=== PATIENT | female | born 1955 | race Caucasian/White ===

== ENCOUNTER 2017-08-03 09:10 | Outpatient (CLI) | payer OTHER | END 2017-08-03 09:11 | disposition home or self-care (01) | LOC: LAB.R 09:10 | PROVIDERS: ATTEND Podiatrist | DX: L03.032 Cellulitis of left toe (principal) | CPT/HCPCS: 87070; 87205 ==

== ENCOUNTER 2017-08-03 18:59 | Emergency (ER) | payer OTHER ==
[2017-08-03 19:08] VITALS: BP 142/65
--- NOTE | 2017-08-03 21:11 | XRAY Report ---
EXAM: LEFT TOE RADIOGRAPHY EXAM DATE: 08/03/2017 08:53 PM. CLINICAL HISTORY: Infected first digit, hx of diabetes. COMPARISON: None. TECHNIQUE: 3 views. FINDINGS: Bones: No periosteal reaction or osseous destruction. No fracture or bone lesion. Joints: Normal. No subluxations. Soft Tissues: Mild soft tissue swelling. IMPRESSION: No acute osseous abnormality. [facility] Referring Provider Line: [phone] SITE ID: [id number]
--- NOTE | 2017-08-03 21:11 | XRAY Preliminary Report ---
Exam: XR TOE(S) LT IMPRESSION: No acute osseous abnormality. [facility] SITE ID: [id number]
--- NOTE | 2017-08-03 21:35 | ED Physician Documentation ---
PD HPI LOWER EXT INJURY - Stated complaint Stated Complaint: L FOOT PAIN - Chief complaint Chief Complaint: Trauma Ext - History obtained from History obtained from: Patient - History of Present Illness PD HPI LOW EXT INJURY LOCATION: Left, Toe Type of injury: Blunt / blow Where injury occurred: Home Timing - onset: How many days ago (3) Timing - details: Abrupt onset, Still present Similar symptoms before: Has not had sx before Recently seen: Clinic - Additional information Additional information: Patient is a 61 year old female who is presenting to the emergency department for toe pain. Patient states that she stubbed her toe last week and had a small wound. Patient has been taking care of her 's wound that turned out to be mrsa. patient developed a secondary infection. patient saw her pmd today who started the patient on mupirocin and doxycycline. Patient reports that she had worsening pain in her toe tonight. Before evaluation the blister on her toe opened and patient had purulent discharge from the site. Upon initial evaluation patient stated that she was feeling better. Review of Systems Constitutional: denies: Fever, Chills Eyes: reports: Reviewed and negative Ears: reports: Reviewed and negative Nose: reports: Reviewed and negative Throat: reports: Reviewed and negative Cardiac: reports: Reviewed and negative Respiratory: reports: Reviewed and negative GI: denies: Nausea, Vomiting : denies: Dysuria, Frequency Skin: reports: Rash, Lesions Musculoskeletal: reports: Extremity pain, Joint pain Neurologic: denies: Generalized weakness PD PAST MEDICAL HISTORY - Past Medical History Cardiovascular: Hypertension, High cholesterol Endocrine/Autoimmune: Type 2 diabetes, HyPOthyroidism - Past Surgical History 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 - Present Medications Home Medications: Ambulatory Orders Medication Instructions Recorded Confirmed Atorvastatin [Lipitor] 20 mg PO DAILY 02/03/16 08/03/17 Levothyroxine Sodium [Levoxyl] 75 mcg PO DAILY 02/03/16 08/03/17 Lisinopril 10 mg PO DAILY 02/03/16 08/03/17 metFORMIN [Glucophage] 500 mg PO BID 02/03/16 08/03/17 Doxycycline Hyclate [Vibramycin] 100 mg PO BID 08/03/17 08/03/17 - Allergies Allergies/Adverse Reactions: Allergies Allergy/AdvReac Type Severity Reaction Status Date / Time clarithromycin Allergy Hives Verified 08/03/17 19:08 codeine Allergy Rash Verified 08/03/17 19:08 Iodinated Contrast- Oral and Allergy Hives Verified 08/03/17 19:08 IV Dye [Iodinated Contrast Media - IV Dye] morphine Allergy Edema Verified 08/03/17 19:08 - Social History Does the pt smoke?: No Smoking Status: Never smoker Does the pt drink ETOH?: No Does the pt have substance abuse?: No - Immunizations Immunizations are current?: Yes PD ED PE NORMAL - Vitals Vital signs reviewed: Yes - General General: Alert and oriented X 3, No acute distress - HEENT HEENT: Atraumatic, PERRL - Neck Neck: Supple, no meningeal sign - Cardiac Cardiac: RRR - Respiratory Respiratory: No respiratory distress - Abdomen Abdomen: Soft - Neuro Neuro: Alert and oriented X 3, No motor deficit, Normal speech Eye Opening: Spontaneous Motor: Obeys Commands Verbal: Oriented GCS Score: 15 - Psych Psych: Normal mood PD ED PE EXPANDED - Extremities Extremities: Left toe(s) (erythema and purulent discharge of left first digit, mild streaking erythema of left foot) Results - Vitals Vitals: Vital Signs - 24 hr 08/03/17 19:07 Temperature 36.9 C Heart Rate 81 Respiratory 16 Rate Blood Pressure 142/65 H O2 Saturation 97 Oxygen O2 Source Room air - Rads (name of study) foot x-ray Radiology: Final report received (normal) PD MEDICAL DECISION MAKING - ED course Complexity details: reviewed old records, reviewed results, re-evaluated patient , considered differential, d/w patient ED course: Patient was seen and examined at bedside. Patient was already on appropriate antibiotics and the blister had opened on its own. Patient's wound had purulent discharge and her pain was improved without medication. Imaging was ordered due to the patient's history of diabetes. When patient returned the results were reviewed and within normal limits. Patient required no further work up and was stable for discharge with outpatient follow up. Departure - Departure Disposition: 01 Home, Self Care Clinical Impression: Cellulitis Condition: Good Instructions: ED Infec Skin Cellulitis Follow-Up: Federico Mark MD [Primary Care Provider] - Comments: Your symptoms today are being caused by cellulitis. You have been prescribed medications and you should continue with them. your x-ray was normal but you need to monitor for signs of improvement because the infection can spread to your bone. You should follow up with your doctor this week for a wound check. You may return to the emergency department at any time for new, worsening or uncontrollable symptoms. Discharge Date/Time: 08/03/17 21:41
== END 2017-08-03 21:41 | disposition home or self-care (01) ==
LOC: ED 18:59
DX: L03.032 Cellulitis of left toe (principal); I10 Essential (primary) hypertension; E11.9 Type 2 diabetes mellitus without complications; Z79.84 Long term (current) use of oral hypoglycemic drugs
CPT/HCPCS: 73660; 87070; 87205; 99282; 99283

== ENCOUNTER 2017-08-06 17:20 | Emergency (ER) | payer OTHER ==
[2017-08-06 17:31] VITALS: BP 136/52
[2017-08-06] MEDS ORDERED: BUPIVACAINE 0.5% PF 30 ML VIAL SUBQ STA (19:34)
--- NOTE | 2017-08-06 19:37 | ED Physician Documentation ---
History of Present Illness - Stated complaint Stated Complaint: TOE PX - Chief complaint Chief Complaint: Ext Problem - History obtained from History obtained from: Patient - History of Present Illness Timing: How many weeks ago (3) Pain level max: 4 Pain level now: 3 Improved by: nothing Worsened by: Walking - Additonal information Additional information: Patient is a 61-year-old female who is several weeks status post a partial toenail removal, she has been getting recurrent infections in the toe since that time. She is currently on doxycycline and Bactrim. States that the toe has become more swollen over the past few days. She saw her PCP who recommended she come here for IV antibiotics. She has no fevers. No vomiting. It is the left great toe. She states she has had problems with this toe for years. Also states she has more problems with the toenail for years. 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 - Present Medications Home Medications: Ambulatory Orders Medication Instructions Recorded Confirmed Atorvastatin [Lipitor] 20 mg PO DAILY 02/03/16 08/03/17 Levothyroxine Sodium [Levoxyl] 75 mcg PO DAILY 02/03/16 08/03/17 Lisinopril 10 mg PO DAILY 02/03/16 08/03/17 metFORMIN [Glucophage] 500 mg PO BID 02/03/16 08/03/17 Doxycycline Hyclate [Vibramycin] 100 mg PO BID 08/03/17 08/03/17 Ibuprofen [Motrin] 800 mg PO Q8H PRN #30 tablet 08/06/17 - Allergies Allergies/Adverse Reactions: Allergies Allergy/AdvReac Type Severity Reaction Status Date / Time clarithromycin Allergy Hives Verified 08/03/17 19:08 codeine Allergy Rash Verified 08/03/17 19:08 Iodinated Contrast- Oral and Allergy Hives Verified 08/03/17 19:08 IV Dye [Iodinated Contrast Media - IV Dye] morphine Allergy Edema Verified 08/03/17 19:08 - Social History Does the pt smoke?: No Smoking Status: Never smoker Does the pt drink ETOH?: No Does the pt have substance abuse?: No - Immunizations Immunizations are current?: Yes PD ED PE NORMAL - Vitals Vital signs reviewed: Yes - General General: Alert and oriented X 3, No acute distress - Derm Derm: Warm and dry - Extremities Extremities: Other (Left great toe there is erythema, swelling and purulence around the great toe. Mostly on the medial aspect where the removal is done. Still has approximately 80% of the toenail. The what appears to be loosening on its own from the infection. Neurovascularly intact) - Neuro Neuro: Alert and oriented X 3 - Psych Psych: Normal mood, Normal affect Results - Vitals Vitals: Vital Signs - 24 hr 08/06/17 17:29 Temperature 36.8 C Heart Rate 85 Respiratory 17 Rate Blood Pressure 136/52 H O2 Saturation 97 Oxygen O2 Source Room air Procedures - General procedure General procedure: Left great toenail removal - After consent was obtained from the patient explaining the risks and benefits. 0.5% Marcaine was used as a digital block to anesthetize the toe With excellent anesthesia achieved. Curved forceps were then utilized to elevate and remove the toenail. Purulent material was removed from the toe itself, mild debridement performed, Xeroform dressing was applied. Tube gauze was applied over this. Neurovascularly intact. No complications PD MEDICAL DECISION MAKING - ED course Complexity details: reviewed old records, re-evaluated patient, considered differential, d/w patient ED course: Patient is a 61-year-old female with what appears to be an ongoing infection from her left great toenail. Appears to have a significant paronychia as well as no breakdown of the skin at the proximal aspect of the nail on the medial side. We discussed several treatment options, she has decided that she would like the toenail removed at this time as she has had problems with the toenail for years, states ever since it fell off and never grew back correctly. I think this is prudent in her case. The toenail was removed and she tolerated this well. Also given a dose of Rocephin. We will continue her current antibiotics and follow-up closely with her geospatial systems integrator. She is well-appearing, nontoxic. No evidence of gangrene or necrosis. Patient counseled regarding signs and symptoms for which I believe and urgent re-evaluation would be necessary. Patient with good understanding of and agreement to plan and is comfortable going home at this time This document was made in part using voice recognition software. While efforts are made to proofread this document, sound alike and grammatical errors may occur. Departure - Departure Disposition: 01 Home, Self Care Clinical Impression: Cellulitis Qualifiers: Site of cellulitis: unspecified site Qualified Code(s): L03.90 - Cellulitis, unspecified Condition: Good Instructions: ED Infec Skin Cellulitis Follow-Up: Ludmila March DPM [Provider Admit Priv/Credential] - Prescriptions: Ibuprofen [Motrin] 800 mg PO Q8H PRN #30 tablet PRN Reason: PAIN &/OR FEVER Comments: Conitnue your medications at home. Return if you worsen. Discharge Date/Time: 08/06/17 21:57
[2017-08-06] MEDS ORDERED: LIDOCAINE 1% 2 ML VIAL SUBQ ONE (21:06)
[2017-08-06] MEDS ORDERED: cefTRIAXone 1 GM VIAL IM STA (21:06)
[2017-08-06] MEDS ORDERED: IBUPROFEN 800 MG TABLET PO STA (21:13)
== END 2017-08-06 21:57 | disposition home or self-care (01) ==
LOC: ED 17:20
DX: L03.032 Cellulitis of left toe (principal); E11.9 Type 2 diabetes mellitus without complications; E78.00 Pure hypercholesterolemia, unspecified; I10 Essential (primary) hypertension; E03.9 Hypothyroidism, unspecified; Z79.84 Long term (current) use of oral hypoglycemic drugs
CPT/HCPCS: 11730; 96372; 99283; A9270

== ENCOUNTER 2017-12-21 13:41 | Outpatient (CLI) | payer OTHER ==
[2017-12-21] MEDS ORDERED: IOPAMIDOL-300 100 ML VIAL ONE (14:10)
[2017-12-21] MEDS ORDERED: IOPAMIDOL-300 50 ML VIAL ONE (14:10)
[2017-12-21] MEDS ORDERED: IOPAMIDOL-300 50 ML VIAL PO ONE (15:41)
[2017-12-21] MEDS ORDERED: IOPAMIDOL-300 100 ML VIAL IVP ONE (15:41)
--- NOTE | 2017-12-21 16:13 | CT Report ---
Procedure Date: 12/21/2017 Accession Number: [id number] / [id number] Procedure: CT - Abdomen/Pelvis W/ CPT Code: FULL RESULT: EXAM: Abdomen/Pelvis W/ DATE: 12/21/2017 3:35 PM CLINICAL HISTORY: diarrhea and abd pain COMPARISON: CT 08/31/2010. TECHNIQUE: Routine helical CT imaging was performed through the abdomen and pelvis. IV contrast: 100 mL of Isovue 300. Enteric contrast: Yes. Reconstructions: Coronal and sagittal. In accordance with CT protocol optimization, one or more of the following dose reduction techniques were utilized for this exam: automated exposure control, adjustment of mA and/or KV based on patient size, or use of iterative reconstructive technique. FINDINGS: There is focal fat stranding and bowel wall thickening focally in the left lower quadrant surrounding a segment of sigmoid colon with diverticuli. There is a small amount of associated free pelvic fluid. There is no associated collection or extraintestinal gas to suggest macro perforation or drainable abscess. The liver, gallbladder, spleen, kidneys, adrenal glands and pancreas are unremarkable. There is no pathologic lymphadenopathy or bowel obstruction. IMPRESSION: Uncomplicated sigmoid diverticulitis. [facility]
== END 2017-12-21 13:42 | disposition home or self-care (01) ==
LOC: DI 13:41
PROVIDERS: ATTEND Nurse Practitioner Family
DX: K57.32 Diverticulitis of large intestine without perforation or abscess without bleeding (principal); K57.30 Diverticulosis of large intestine without perforation or abscess without bleeding
CPT/HCPCS: 74177; Q9967

== ENCOUNTER 2018-03-17 09:35 | Outpatient (CLI) | payer OTHER ==
--- NOTE | 2018-03-18 11:33 | Mammography Report ---
Reason: SCREENING MAMMO Procedure Date: 03/17/2018 Accession Number: [id number] / [id number] Procedure: MGS - Screening Mammo Dig Bilat CPT Code: FULL RESULT: EXAM: Screening Mammo Dig Bilat DATE: 03/17/2018 9:55 AM CLINICAL HISTORY: Routine screening TECHNIQUE: Bilateral CC and MLO views were obtained. COMPARISON: 02/12/2015, 05/18/2013, 03/15/2012 and 06/18/2010 FINDINGS: There are scattered fibroglandular densities. There is no significant interval change. No suspicious masses, clustered microcalcifications, or regions of architectural distortion are identified. IMPRESSION: Negative examination RECOMMENDATION: Routine annual screening unless otherwise clinically indicated. BIRADS CATEGORY 1: Negative STANDARD QUALIFYING STATEMENTS: 1. This examination was reviewed with the aid of Computer-Aided Detection (CAD). 2. A negative or benign imaging report should not delay biopsy if clinically suspicious findings are present. Consider surgical consultation if warrented. More than 5% of cancers are not identified by imaging. 3. Dense breasts may obscure an underlying neoplasm.
== END 2018-03-17 09:36 | disposition home or self-care (01) ==
LOC: DI.S 09:35
DX: Z12.31 Encounter for screening mammogram for malignant neoplasm of breast (principal)
CPT/HCPCS: 77067

== ENCOUNTER 2018-04-19 10:04 | Outpatient (CLI) | payer OTHER | END 2018-04-19 10:05 | disposition home or self-care (01) | LOC: SC 10:04 | PROVIDERS: ATTEND Internal Medicine Pulmonary Disease | DX: G47.33 Obstructive sleep apnea (adult) (pediatric) (principal) | CPT/HCPCS: 99203; 99212 ==

== ENCOUNTER 2018-08-02 12:58 | Outpatient (CLI) | payer OTHER | END 2018-08-02 12:59 | disposition home or self-care (01) | LOC: SC 12:58 | PROVIDERS: ATTEND Internal Medicine Pulmonary Disease | DX: G47.33 Obstructive sleep apnea (adult) (pediatric) (principal) | CPT/HCPCS: 99212; 99213 ==

== ENCOUNTER 2018-09-16 17:43 | Emergency (ER) | payer OTHER ==
--- NOTE | 2018-09-16 18:59 | ED Physician Documentation ---
PD HPI SKIN - Stated complaint Stated Complaint: LT TOE DISCHARGE - Chief complaint Chief Complaint: Ext Problem - History obtained from History obtained from: Patient - History of Present Illness Timing - onset: How many days ago (2-3) Timing - duration: Days Timing - details: Gradual onset Location: LLE (noted some swelling, redness and small pustule at corner of nailbed 2-3 days ago, increasing size. Not draining.) Quality / character: Painful, Discolored (red), Swelling Similar symptoms before: Diagnosis (had paronychia in the past and then fungal infection. 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 - Present Medications Home Medications: Ambulatory Orders Medication Instructions Recorded Confirmed Levothyroxine Sodium [Levoxyl] 75 mcg PO DAILY 02/03/16 08/03/17 RX: Atorvastatin [Lipitor] 20 mg PO DAILY 02/03/16 08/03/17 RX: Lisinopril 10 mg PO DAILY 02/03/16 08/03/17 RX: metFORMIN [Glucophage] 500 mg PO BID 02/03/16 08/03/17 Ibuprofen [Motrin] 800 mg PO Q8H PRN #30 tablet 08/06/17 Montelukast [Singulair] 10 mg PO QPM 09/16/18 09/16/18 RX: Doxycycline Hyclate 100 mg PO BID #14 capsule 09/16/18 RX: Mupirocin 1 applic TP TID #15 g 09/16/18 - Allergies Allergies/Adverse Reactions: Allergies Allergy/AdvReac Type Severity Reaction Status Date / Time clarithromycin Allergy Hives Verified 09/16/18 17:58 codeine Allergy Rash Verified 09/16/18 17:58 Iodinated Contrast- Oral and Allergy Hives Verified 09/16/18 17:58 IV Dye [Iodinated Contrast Media - IV Dye] morphine Allergy Edema Verified 09/16/18 17:58 - Social History Does the pt smoke?: No Smoking Status: Never smoker Does the pt drink ETOH?: No Does the pt have substance abuse?: No - Immunizations Immunizations are current?: Yes PD ED PE NORMAL - Vitals Vital signs reviewed: Yes - General General: Alert and oriented X 3, No acute distress, Well developed/nourished - Derm Derm: Normal color, Warm and dry - Extremities Extremities: Other (Left great toe nailbed is without nail. The nail bed corner has an area of redness and swelling and a small white pustule that is not draining. I used a #11 scalpel tip to neck added to and got a couple of drops of pus out. There is no redness extending proximal to the toe.) Results - Vitals Vitals: Vital Signs - 24 hr 09/16/18 09/16/18 17:55 19:34 Temperature 36.8 C Heart Rate 77 74 Respiratory 16 14 Rate Blood Pressure 132/69 H 136/68 H O2 Saturation 99 98 Oxygen O2 Source Room air Departure - Departure Disposition: 01 Home, Self Care Clinical Impression: Paronychia Condition: Stable Record reviewed to determine appropriate education?: Yes Instructions: ED Paronychia Ch Follow-Up: Federico Mark MD [Primary Care Provider] - Prescriptions: RX: Doxycycline Hyclate 100 mg PO BID #14 capsule RX: Mupirocin 1 applic TP TID #15 g Comments: Soak the toe 2-3 times a day to help promote drainage and improve blood flow to the area. Use mupirocin antibiotic ointment topically to the area after that. Keep it gently covered with a Band-Aid or simple dressing. Take doxycycline oral antibiotic for the next several days to week until the toe looks well- healed. Recheck if not improved over the next several days or so. Discharge Date/Time: 09/16/18 19:34
[2018-09-16] MEDS ORDERED: MUPIROCIN 2% OINT 1 GM TOP STA (19:16)
[2018-09-16] MEDS ORDERED: DOXYCYCLINE 100 MG TABLET PO STA (19:16)
[2018-09-16 19:35] VITALS: BP 136/68
== END 2018-09-16 19:34 | disposition home or self-care (01) ==
LOC: ED 17:43
DX: L03.032 Cellulitis of left toe (principal); E11.9 Type 2 diabetes mellitus without complications; Z79.84 Long term (current) use of oral hypoglycemic drugs; I10 Essential (primary) hypertension
CPT/HCPCS: 10060; 99283; A9270

== ENCOUNTER 2019-04-06 08:00 | Outpatient (CLI) | payer OTHER ==
--- NOTE | 2019-04-06 08:43 | Mammography Report ---
Reason: ROUTINE MAMMO Procedure Date: 04/06/2019 Accession Number: [id number] / [id number] Procedure: MGS - Screening Mammo Dig Bilat CPT Code: Final Report FULL RESULT: EXAM: Screening Mammo Dig Bilat DATE: 04/06/2019 8:22 AM CLINICAL HISTORY: Screening encounter. Family history of breast cancer in a paternal aunt at the age of 30. TECHNIQUE: (B) - Bilateral CC and MLO views were obtained. COMPARISON: 03/17/2018 through 03/18/2007. PARENCHYMAL PATTERN: (A) - The breast(s) demonstrate(s) scattered fibroglandular densities. FINDINGS: There are no suspicious masses, calcifications, or areas of distortion. IMPRESSION: Negative examination. BI-RADS category 1. RECOMMENDATION: (ANNUAL) - Recommend routine annual screening mammography. BI-RADS CATEGORY: (1) - Negative. STANDARD QUALIFYING STATEMENTS: 1. This examination was reviewed with the aid of Computer-Aided Detection (CAD). 2. A negative or benign imaging report should not preclude biopsy if clinically suspicious findings are present. 3. Dense breasts may obscure an underlying neoplasm. 4. This examination was reviewed without the aid of 3D breast imaging (tomosynthesis).
== END 2019-04-06 08:01 | disposition home or self-care (01) ==
LOC: DI.S 08:00
PROVIDERS: ATTEND Nurse Practitioner Family
DX: Z12.31 Encounter for screening mammogram for malignant neoplasm of breast (principal); Z80.3 Family history of malignant neoplasm of breast
CPT/HCPCS: 77067

== ENCOUNTER 2020-05-06 10:55 | Emergency (ER) | payer OTHER ==
[2020-05-06 11:54] LABS: BILIRUBIN,URINE NEGATIVE (NEGATIVE); GLUCOSE, URINE (UA) NEGATIVE (NEGATIVE); KETONES,URINE (UA) NEGATIVE (NEGATIVE); LEUKOCYTE ESTERASE, URINE SMALL (NEGATIVE); NITRITE,URINE NEGATIVE (NEGATIVE); OCCULT BLOOD,URINE NEGATIVE (NEGATIVE); PH,URINE 6.5 PH (5.0-7.5); PROTEIN,URINE NEGATIVE (NEGATIVE); UROBILINOGEN,URINE 0.2 (NORMAL) E.U./dL (NORMAL)
[2020-05-06 11:57] LABS: CLARITY,URINE CLEAR (CLEAR)
[2020-05-06 12:11] LABS: BACTERIA,URINE Moderate /HPF (None Seen); EPITHELIAL CELLS,UR FEW Transitional /HPF (<= Few); RBC,URINE 0-5 /HPF (0-5); SQUAMOUS EPITHELIAL CELL,UR MOD Squamous (<= Few)
[2020-05-06 12:27] LABS: BASOPHILS % (AUTO) 0.2 %; EOSINOPHILS # (AUTO) 0.1 10^3/uL (0.0-0.7); EOSINOPHILS % (AUTO) 2.6 %; HGB - HEMOGLOBIN 12.6 g/dL (12.0-16.0); LYMPHOCYTES # (AUTO) 2.4 10^3/uL (1.5-3.5); LYMPHOCYTES % (AUTO) 48.8 %; MEAN CORPUSCULAR HEMOGLOBIN 29.9 pg (27.0-31.0); MEAN CORPUSCULAR HGB CONC 32.6 g/dL (32.0-36.0); MEAN CORPUSCULAR VOLUME 91.5 fL (81.0-99.0); MEAN PLATELET VOLUME 10.1 fL (7.9-10.8); MONOCYTES # (AUTO) 0.4 10^3/uL (0.0-1.0); MONOCYTES % (AUTO) 7.4 %; NEUTROPHILS % (AUTO) 40.8 %; PLT - PLATELET COUNT 230 10^3/uL (130-450); RED BLOOD COUNT 4.22 10^6/uL (4.20-5.40); RED CELL DISTRIBUTION WIDTH 13.1 % (12.0-15.0)
[2020-05-06 12:43] LABS: ALBUMIN 4.1 g/dL (3.2-5.5); ALBUMIN/GLOBULIN RATIO 1.5 (1.0-2.2); BILIRUBIN,TOTAL 0.8 mg/dL (0.2-1.0); CALCIUM 9.4 mg/dL (8.5-10.3); CREATININE 0.9 mg/dL (0.4-1.0); TOTAL PROTEIN 6.9 g/dL (6.7-8.2)
--- NOTE | 2020-05-06 12:50 | ED Physician Documentation ---
PD HPI ABD PAIN - Stated complaint Stated Complaint: ABD PX - Chief complaint Chief Complaint: Abd Pain - History obtained from History obtained from: Patient - History of Present Illness Timing - onset: Today, How many days ago (3) Timing - duration: Days (3) Timing - details: Gradual onset, Waxing and waning Pain level max: 7 Pain level now: 3 Quality: Aching, Pain Location: Periumbilical, RLQ Radiation: No: Chest, , Lower back, Left flank, Left shoulder, Right flank, Right shoulder, Upper back Improved by: Laying still Worsened by: Moving, Palpation Associated symptoms: No: Fever, Nausea, Vomiting, Hematemesis, Diarrhea, Constipation, Melena, Hematochezia, Dysuria, Hematuria Review of Systems Constitutional: denies: Fever, Chills Nose: denies: Rhinorrhea / runny nose, Congestion Throat: denies: Sore throat Cardiac: denies: Chest pain / pressure GI: denies: Vomiting, Diarrhea Skin: denies: Rash Musculoskeletal: denies: Neck pain, Back pain Neurologic: denies: Headache PD PAST MEDICAL HISTORY - Past Medical History Cardiovascular: Hypertension, High cholesterol Endocrine/Autoimmune: Type 2 diabetes, HyPOthyroidism - Past Surgical History 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 - Present Medications Home Medications: Ambulatory Orders Medication Instructions Recorded Confirmed Atorvastatin [Lipitor] 20 mg PO DAILY 02/03/16 05/06/20 Levothyroxine Sodium [Levoxyl] 75 mcg PO DAILY 02/03/16 05/06/20 lisinopriL [Lisinopril] 10 mg PO DAILY 02/03/16 05/06/20 metFORMIN [Glucophage] 500 mg PO BID 02/03/16 05/06/20 Montelukast [Singulair] 10 mg PO QPM 09/16/18 05/06/20 Amox/Clav 875/125 [Augmentin] 1 tab PO Q8H #30 tablet 05/06/20 - Allergies Allergies/Adverse Reactions: Allergies Allergy/AdvReac Type Severity Reaction Status Date / Time clarithromycin Allergy Hives Verified 05/06/20 11:14 codeine Allergy Rash Verified 05/06/20 11:14 Iodinated Contrast Media Allergy Hives Verified 05/06/20 11:14 [Iodinated Contrast Media - IV Dye] morphine Allergy Edema Verified 05/06/20 11:14 - Social History Does the pt smoke?: No Smoking Status: Never smoker Does the pt drink ETOH?: No Does the pt have substance abuse?: No - Immunizations Immunizations are current?: Yes PD ED PE NORMAL - Vitals Vital signs reviewed: Yes - General General: Alert and oriented X 3, No acute distress - HEENT HEENT: Moist mucous membranes - Neck Neck: Supple, no meningeal sign - Cardiac Cardiac: RRR - Respiratory Respiratory: No respiratory distress, Clear bilaterally - Abdomen Abdomen: Soft, Non distended, Other (mild TTP R pelvic area and RLQ, no peritoneal signs) - Derm Derm: Warm and dry - Extremities Extremities: No edema - Neuro Neuro: Alert and oriented X 3 - Psych Psych: Normal mood, Normal affect Results - Vitals Vitals: Vital Signs - 24 hr 05/06/20 05/06/20 05/06/20 11:12 13:14 14:54 Temperature 37.0 C 36.7 C Heart Rate 71 64 68 Respiratory 16 19 16 Rate Blood Pressure 119/59 L 126/78 133/69 H O2 Saturation 98 99 100 Oxygen O2 Source Room air - Labs Labs: Laboratory Tests 05/06/20 05/06/20 05/06/20 11:30 12:24 12:24 WBC 5.0 RBC 4.22 Hgb 12.6 Hct 38.6 MCV 91.5 MCH 29.9 MCHC 32.6 RDW 13.1 Plt Count 230 MPV 10.1 Neut # (Auto) 2.0 Lymph # (Auto) 2.4 [place] # (Auto) 0.4 Eos # (Auto) 0.1 Baso # (Auto) 0.0 Absolute Nucleated RBC 0.00 Nucleated RBC % 0.0 Sodium 141 Potassium 4.1 Chloride 106 Carbon Dioxide 26 Anion Gap 9.0 BUN 18 Creatinine 0.9 Estimated GFR (MDRD) 63 L Glucose 151 H Calcium 9.4 Total Bilirubin 0.8 AST 19 ALT 33 Alkaline Phosphatase 76 Total Protein 6.9 Albumin 4.1 Globulin 2.8 Albumin/Globulin Ratio 1.5 Lipase 34 Urine Color YELLOW Urine Clarity CLEAR Urine pH 6.5 Ur Specific Sapello <=1.005 Urine Protein NEGATIVE Urine Glucose (UA) NEGATIVE Urine Ketones NEGATIVE Urine Occult Blood NEGATIVE Urine Nitrite NEGATIVE Urine Bilirubin NEGATIVE Urine Urobilinogen 0.2 (NORMAL) Ur Leukocyte Esterase SMALL H Urine RBC 0-5 Urine WBC 6-10 H Ur Epithelial Cells FEW Transitional Ur Squamous Epith Cells MOD Squamous H Urine Bacteria Moderate H Ur Microscopic Review INDICATED Urine Culture Comments NOT INDICATED - Rads (name of study) CT abdomen pelvis Radiology: Prelim report reviewed, EMP read contemporaneously, See rad report PD MEDICAL DECISION MAKING - ED course Complexity details: reviewed results, re-evaluated patient, considered differential, d/w patient ED course: 1. Suggestion of mild infectious or inflammatory colitis involving right colon. No bowel obstruction. No free fluid of free air. 2. Colonic diverticulosis without evidence of acute diverticulitis. Normal appendix. 3. Hepatic steatosis, no discrete hepatic lesion. Patient's allergy to contrast media is hives, premedicated with Benadryl and steroids. No reaction here. CT scan shows a mild infectious or inflammatory c olitis in the right colon. Discussed with the patient and she would like antibiotics. Does understand the risks including antibiotic associated diarrhea, C. difficile etc. Patient is well-appearing, nontoxic. Afebrile. Patient counseled regarding signs and symptoms for which I believe and urgent re-evaluation would be necessary. Patient with good understanding of and agreement to plan and is comfortable going home at this time This document was made in part using voice recognition software. While efforts are made to proofread this document, sound alike and grammatical errors may occur. Departure - Departure Disposition: 01 Home, Self Care Clinical Impression: Colitis Condition: Good Instructions: ED Diverticulitis Follow-Up: Federico Mark MD [Primary Care Provider] - Within 1 week Prescriptions: Amox/Clav 875/125 [Augmentin] 1 tab PO Q8H #30 tablet Comments: Take all antibiotics until gone. Return if you worsen. Follow-up with your doctor for further care. As we discussed, colitis could be infectious or purely inflammatory, we discussed risks and benefits of antibiotics. We will prescribe the antibiotics for you today. Discharge Date/Time: 05/06/20 14:55
[2020-05-06] MEDS ORDERED: IOVERSOL 320 100 ML VIAL IVP ONE ×2 (13:20→14:26)
[2020-05-06] MEDS ORDERED: methylPREDNISolone SUCCINATE 125 MG/2 ML VIAL IVP STA (13:39)
[2020-05-06] MEDS ORDERED: diphenhydrAMINE INJ 50 MG/ML VIAL IVP STA (13:39)
--- NOTE | 2020-05-06 14:36 | CT Report ---
PROCEDURE: Abdomen/Pelvis W INDICATIONS: RLQ abd pain CONTRAST: IV CONTRAST: Optiray 320 ml: 100 PO CONTRAST: *NO PO CONTRAST TECHNIQUE: After the administration of IV contrast, 5 mm thick sections acquired from the diaphragms to the symp hysis. 5 mm thick coronal and sagittal reformats were acquired. For radiation dose reduction, the f ollowing was used: automated exposure control, adjustment of mA and/or kV according to patient size. COMPARISON: 12/21/2017. FINDINGS: Image quality: Excellent. ABDOMEN: Lung bases: Mild bibasilar dependent atelectasis is seen. Heart size is normal. Solid organs: Liver and spleen are normal in size. Hepatic steatosis is noted. No discrete hepatic l esion. Gallbladder is within normal limits. Biliary system is non dilated. Pancreas enhances normal ly. No adrenal nodules. Kidneys demonstrate normal size and enhancement. There is no renal stone or hydronephrosis. Peritoneum and bowel: There is no bowel obstruction. No gross gastric or small bowel wall thickening. Questionable right-sided colonic wall thickening and edema is seen. Transverse colon and descending colon wall thickness is normal. Sigmoid diverticulosis is seen, no CT evidence of acute diverticuliti s. No free fluid of free air. Appendix is visualized in right lower quadrant abdomen and is normal in size and appearance. Nodes and vessels: No retroperitoneal or mesenteric adenopathy by size criteria. Aorta and inferior vena cava are normal in size. Miscellaneous: No ventral hernias. PELVIS: Genitourinary: Bladder wall thickness is normal. Miscellaneous: No inguinal hernias or adenopathy. No gross abnormality is seen in uterus and bilate ral adnexa. Bones: No suspicious bony lesions. No vertebral body compression fractures. IMPRESSION: 1. Suggestion of mild infectious or inflammatory colitis involving right colon. No bowel obstruction. No free fluid of free air. 2. Colonic diverticulosis without evidence of acute diverticulitis. Normal appendix. 3. Hepatic steatosis, no discrete hepatic lesion. Reviewed by: Jey Renae MD on 05/06/2020 1:35 PM [place] Approved by: Jey Renae MD on 05/06/2020 1:35 PM [facility] Station ID: [id number]
[2020-05-06] MEDS ORDERED: AMOX/CLAV 875 MG/125 MG TABLET PO STA (14:45)
[2020-05-06 14:55] VITALS: BP 133/69
== END 2020-05-06 14:55 | disposition home or self-care (01) ==
LOC: ED 10:55
DX: K52.9 Noninfective gastroenteritis and colitis, unspecified (principal); Z91.041 Radiographic dye allergy status; I10 Essential (primary) hypertension; E11.9 Type 2 diabetes mellitus without complications; Z79.84 Long term (current) use of oral hypoglycemic drugs
CPT/HCPCS: 36415; 74177; 80053; 81001; 83690; 85025; 96374; 99284; A9270; J1200; Q9967; 81003; 87086

== ENCOUNTER 2020-09-16 08:00 | Outpatient (CLI) | payer OTHER | END 2020-09-16 23:59 | disposition home or self-care (01) | LOC: LAB.S 08:00 | PROVIDERS: ATTEND Physician Assistant Medical | DX: N39.0 Urinary tract infection, site not specified (principal) | CPT/HCPCS: 87077; 87086; 87181 ==

== ENCOUNTER 2021-08-09 10:42 | Emergency (ER) | payer OTHER ==
[2021-08-09] MEDS ORDERED: methylPREDNISolone SUCCINATE 125 MG/2 ML VIAL IVP STA (11:32)
[2021-08-09] MEDS ORDERED: diphenhydrAMINE INJ 50 MG/ML VIAL IVP STA (11:32)
[2021-08-09 11:33] LABS: BASOPHILS % (AUTO) 0.2 %; EOSINOPHILS # (AUTO) 0.1 10^3/uL (0.0-0.7); EOSINOPHILS % (AUTO) 1.4 %; HCT - HEMATOCRIT 38.9 % (37.0-47.0); HGB - HEMOGLOBIN 12.8 g/dL (12.0-16.0); LYMPHOCYTES # (AUTO) 2.5 10^3/uL (1.5-3.5); LYMPHOCYTES % (AUTO) 28.8 %; MEAN CORPUSCULAR HEMOGLOBIN 29.6 pg (27.0-31.0); MEAN CORPUSCULAR HGB CONC 32.9 g/dL (32.0-36.0); MEAN PLATELET VOLUME 10.3 fL (7.9-10.8); MONOCYTES # (AUTO) 0.7 10^3/uL (0.0-1.0); NEUTROPHILS # (AUTO) 5.4 10^3/uL (1.5-6.6); NEUTROPHILS % (AUTO) 61.5 %; PLT - PLATELET COUNT 269 10^3/uL (130-450); RED BLOOD COUNT 4.32 10^6/uL (4.20-5.40); RED CELL DISTRIBUTION WIDTH 12.7 % (12.0-15.0); WHITE BLOOD COUNT 8.8 x10^3/uL (4.8-10.8)
[2021-08-09 11:38] LABS: BILIRUBIN,URINE NEGATIVE (NEGATIVE); CLARITY,URINE CLEAR (CLEAR); GLUCOSE, URINE (UA) NEGATIVE (NEGATIVE); KETONES,URINE (UA) NEGATIVE (NEGATIVE); LEUKOCYTE ESTERASE, URINE NEGATIVE (NEGATIVE); NITRITE,URINE NEGATIVE (NEGATIVE); OCCULT BLOOD,URINE NEGATIVE (NEGATIVE); PROTEIN,URINE NEGATIVE (NEGATIVE); UROBILINOGEN,URINE 0.2 (NORMAL) E.U./dL (NORMAL)
[2021-08-09 11:46] LABS: ALBUMIN 4.2 g/dL (3.2-5.5); ALBUMIN/GLOBULIN RATIO 1.3 (1.0-2.2); BILIRUBIN,TOTAL 0.7 mg/dL (0.2-1.0); CALCIUM 9.4 mg/dL (8.5-10.3); CREATININE 0.8 mg/dL (0.4-1.0); TOTAL PROTEIN 7.4 g/dL (6.7-8.2)
[2021-08-09] MEDS ORDERED: IOVERSOL 320 100 ML VIAL IVP ONE ×2 (11:46→12:21)
--- NOTE | 2021-08-09 12:08 | ED Physician Documentation ---
PD HPI ABD PAIN - Stated complaint Stated Complaint: ABD PAIN - Chief complaint Chief Complaint: Abd Pain - History obtained from History obtained from: Patient - History of Present Illness Timing - onset: How many weeks ago (1) Timing - duration: Weeks (1) Timing - details: Gradual onset, Still present Quality: Sharp, Pain Location: Suprapubic Radiation: Lower back Improved by: Laying still, BM, Position, Meds Worsened by: Moving, Position, Palpation Associated symptoms: Diarrhea. No: Nausea, Vomiting Similar symptoms before: Diagnosis (diverticulitis) Recently seen: Not recently seen - Additional information Additional information: 65-year-old female with a history of diverticulitis has developed symptoms again similar to what she is had previously with diverticulitis. Over the past week she has developed some sharp stabbing pain that is in the suprapubic area. She has some sensation that when stool passes by this area prior to a bowel movement she has a bit of pain associated with this. She has had a tiny bit of blood and mucus. She has had the similar symptoms previously with diverticulitis. Review of Systems Constitutional: denies: Fever, Chills, Myalgias Respiratory: denies: Cough GI: reports: Abdominal Pain, Diarrhea. 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 - Present Medications Home Medications: Ambulatory Orders Medication Instructions Recorded Confirmed Atorvastatin [Lipitor] 20 mg PO DAILY 02/03/16 05/06/20 Levothyroxine Sodium [Levoxyl] 75 mcg PO DAILY 02/03/16 05/06/20 lisinopriL [Lisinopril] 10 mg PO DAILY 02/03/16 05/06/20 metFORMIN [Glucophage] 500 mg PO BID 02/03/16 05/06/20 Montelukast [Singulair] 10 mg PO QPM 09/16/18 05/06/20 Amox/Clav 875/125 [Augmentin] 1 tab PO Q8H #30 tablet 05/06/20 Amox/Clav 875/125 [Augmentin] 1 each PO Q12H #14 tablet 08/09/21 - Allergies Allergies/Adverse Reactions: Allergies Allergy/AdvReac Type Severity Reaction Status Date / Time clarithromycin Allergy Hives Verified 08/09/21 10:50 codeine Allergy Rash Verified 08/09/21 10:50 Iodinated Contrast Media Allergy Hives Verified 08/09/21 10:50 [Iodinated Contrast Media - IV Dye] morphine Allergy Edema Verified 08/09/21 10:50 - Social History Does the pt smoke?: No Smoking Status: Never smoker Does the pt drink ETOH?: No Does the pt have substance abuse?: No - Immunizations Immunizations are current?: Yes PD ED PE NORMAL - Vitals Vital signs reviewed: Yes (Hypertensive) - General General: Alert and oriented X 3, No acute distress, Well developed/nourished - HEENT HEENT: Atraumatic, PERRL, EOMI - Neck Neck: Supple, no meningeal sign, No bony TTP - Cardiac Cardiac: RRR, No murmur - Respiratory Respiratory: No respiratory distress, Clear bilaterally - Abdomen Abdomen: Normal bowel sounds, Soft, Non distended, No organomegaly, Other (Suprapubic tenderness to deep palpation with minimal guarding) - Back Back: No CVA TTP, No spinal TTP - Derm Derm: Normal color, Warm and dry, No rash - Extremities Extremities: No deformity, No edema - Neuro Neuro: Alert and oriented X 3, 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 2-12 intact, No motor deficit, No sensory d eficit, Normal speech Eye Opening: Spontaneous Motor: Obeys Commands Verbal: Oriented GCS Score: 15 - Psych Psych: Normal mood, Normal affect Results - Vitals Vitals: Vital Signs - 24 hr 08/09/21 08/09/21 10:46 12:50 Temperature 36.5 C Heart Rate 81 72 Respiratory 18 23 Rate Blood Pressure 140/78 H 143/75 H O2 Saturation 98 94 Oxygen O2 Source Room air - Labs Labs: Laboratory Tests 08/09/21 08/09/21 08/09/21 11:17 11:25 11:25 WBC 8.8 RBC 4.32 Hgb 12.8 Hct 38.9 MCV 90.0 MCH 29.6 MCHC 32.9 RDW 12.7 Plt Count 269 MPV 10.3 Neut # (Auto) 5.4 Lymph # (Auto) 2.5 [place] # (Auto) 0.7 Eos # (Auto) 0.1 Baso # (Auto) 0.0 Absolute Nucleated RBC 0.00 Nucleated RBC % 0.0 Sodium 138 Potassium 4.0 Chloride 102 Carbon Dioxide 25 Anion Gap 11.0 BUN 18 Creatinine 0.8 Estimated GFR (MDRD) 72 L Glucose 214 H Calcium 9.4 Total Bilirubin 0.7 AST 18 ALT 30 Alkaline Phosphatase 97 Total Protein 7.4 Albumin 4.2 Globulin 3.2 Albumin/Globulin Ratio 1.3 Lipase 42 Urine Color YELLOW Urine Clarity CLEAR Urine pH 7.0 Ur Specific Downs <=1.005 Urine Protein NEGATIVE Urine Glucose (UA) NEGATIVE Urine Ketones NEGATIVE Urine Occult Blood NEGATIVE Urine Nitrite NEGATIVE Urine Bilirubin NEGATIVE Urine Urobilinogen 0.2 (NORMAL) Ur Leukocyte Esterase NEGATIVE Ur Microscopic Review NOT INDICATED Urine Culture Comments NOT INDICATED - Rads (name of study) CT ab pel Radiology: Prelim report reviewed (Impression: 1. Mild distal sigmoid colon diverticulitis. No abscess. Cholelithiasis.), EMP read indepedently, See rad report PD MEDICAL DECISION MAKING - ED course Complexity details: reviewed results, re-evaluated patient, considered differential, d/w patient ED course: 65-year-old female with a history of diverticulitis appears to have a recurrent bout of diverticulitis. This appears uncomplicated and in the lower sigmoid colon. She is not requesting pain medication she is administered Augmentin by prescription. Departure - Departure Disposition: 01 Home, Self Care Clinical Impression: Diverticulitis Condition: Stable Instructions: ED Diverticulitis Follow-Up: Federico Mark MD [Primary Care Provider] - Prescriptions: Amox/Clav 875/125 [Augmentin] 1 each PO Q12H #14 tablet Comments: Filipe, today it looks like you have uncomplicated diverticulitis. The antibiotics should be effective is a has previously in improving her symptoms over the next 1 to 3 days. I have E scribed Augmentin to the [facility] in [place]. Discharge Date/Time: 08/09/21 13:22
--- NOTE | 2021-08-09 12:41 | CT Report ---
PROCEDURE: Abdomen/Pelvis W INDICATIONS: suprapubic pain h/o diverticulitis CONTRAST: IV CONTRAST: Optiray 320 ml: 100 PO CONTRAST: Optiray 320 ml50 TECHNIQUE: After the administration of intravenous contrast, 5 mm thick sections acquired from the diaphragms to the symphysis. 5 mm thick coronal and sagittal reformats were acquired. For radiation dose reducti on, the following was used: automated exposure control, adjustment of mA and/or kV according to emerson ent size. COMPARISON: CT abdomen and pelvis 05/06/2020. FINDINGS: Image quality: Excellent. ABDOMEN: Lung bases: Lung bases are clear. Heart size is normal. Probable small hiatal hernia. Solid organs: Liver and spleen are normal in size and enhancement. No focal lesion. Gallbladder is n ot distended. Small calcified gallstone. Biliary system is non dilated. Pancreas enhances normally. No adrenal nodules. Kidneys demonstrate normal size and enhancement, without hydronephrosis. Prob able small right renal cyst. Peritoneum and bowel: Diverticulosis. Inflammatory change about the lower sigmoid colon, (). Trac e free fluid. No abscess. No small bowel obstruction. Normal appendix. No free fluid or air. Nodes and vessels: No retroperitoneal or mesenteric adenopathy by size criteria. Aorta and inferior vena cava are normal in size. Mild to moderate calcified plaque. Miscellaneous: No ventral hernias. Small fat-containing umbilical hernia. PELVIS: Genitourinary: Bladder wall thickness is normal. Retroverted uterus. Miscellaneous: No inguinal hernias or adenopathy. Bones: No suspicious bony lesions. No vertebral body compression fractures. Mild sclerosis at the p ubic symphysis. IMPRESSION: 1. Mild distal sigmoid colon diverticulitis. No abscess. 2. Cholelithiasis. Reviewed by: Florencio Salmeron MD on 08/09/2021 11:40 AM [facility] Approved by: Florencio Salmeron MD on 08/09/2021 11:40 AM [facility] Station ID: [id number]
[2021-08-09 13:03] VITALS: BP 143/75
== END 2021-08-09 13:22 | disposition home or self-care (01) ==
LOC: ED 10:42
DX: K57.32 Diverticulitis of large intestine without perforation or abscess without bleeding (principal); E11.9 Type 2 diabetes mellitus without complications; Z79.84 Long term (current) use of oral hypoglycemic drugs
CPT/HCPCS: 36415; 74177; 80053; 81003; 83690; 85025; 96374; 99282; 99284; Q9967; 81001; 87086

== ENCOUNTER 2021-08-18 10:46 | Outpatient (CLI) | payer OTHER ==
[2021-08-18 15:24] LABS: ALBUMIN/GLOBULIN RATIO 1.2 (1.0-2.2); ALKALINE PHOSPHATASE 86 IU/L (42-121); ALT ALANINE AMINOTRANSFERASE 59 IU/L (10-60); AST ASPARTATE AMINOTRANSFERASE 24 IU/L (10-42); BILIRUBIN,TOTAL 0.7 mg/dL (0.2-1.0); BUN - BLOOD UREA NITROGEN 20 mg/dL (6-20); CALCIUM 9.6 mg/dL (8.5-10.3); CARBON DIOXIDE - CO2 26 mmol/L (21-32); CHLORIDE 99 mmol/L (101-111); CHOLESTEROL 185 mg/dL; CREATININE 0.7 mg/dL (0.4-1.0); GFR - MDRD 84 (>89); GLUCOSE 306 mg/dL (70-100); HDL CHOLESTEROL 37 mg/dL; LDL CHOLESTEROL,CALCULATED 93 mg/dL; LDL/HDL RATIO 2.5 (<4.4); POTASSIUM 4.4 mmol/L (3.5-5.0); SODIUM 135 mmol/L (135-145); TOTAL PROTEIN 7.4 g/dL (6.7-8.2); TRIGLYCERIDES 274 mg/dL; VLDL CHOLESTEROL 55 mg/dL
[2021-08-18 21:06] LABS: ESTIMATED AVERAGE GLUCOSE 240 mg/dL (70-100)
== END 2021-08-18 10:47 | disposition home or self-care (01) ==
LOC: LAB.S 10:46
PROVIDERS: ATTEND Physician Assistant
DX: E11.9 Type 2 diabetes mellitus without complications (principal); E78.5 Hyperlipidemia, unspecified; E03.9 Hypothyroidism, unspecified
CPT/HCPCS: 36415; 80053; 80061; 83036; 83721; 84443

== ENCOUNTER 2021-08-21 13:49 | Outpatient (CLI) | payer OTHER ==
[2021-08-21] MEDS ORDERED: IOVERSOL 320 100 ML VIAL IVP ONE (14:03)
[2021-08-21] MEDS ORDERED: IOVERSOL 320 50 ML VIAL ONE (14:03)
== END 2021-08-21 13:50 | disposition home or self-care (01) ==
LOC: DI 13:49
PROVIDERS: ATTEND Physician Assistant
DX: K57.32 Diverticulitis of large intestine without perforation or abscess without bleeding (principal)
CPT/HCPCS: 85025

== ENCOUNTER 2021-08-21 14:03 | Emergency (ER) | payer OTHER ==
[2021-08-21 14:33] LABS: BASOPHILS % (AUTO) 0.2 %; EOSINOPHILS # (AUTO) 0.1 10^3/uL (0.0-0.7); EOSINOPHILS % (AUTO) 0.6 %; HCT - HEMATOCRIT 38.6 % (37.0-47.0); HGB - HEMOGLOBIN 12.8 g/dL (12.0-16.0); LYMPHOCYTES # (AUTO) 2.8 10^3/uL (1.5-3.5); LYMPHOCYTES % (AUTO) 30.7 %; MEAN CORPUSCULAR HEMOGLOBIN 29.2 pg (27.0-31.0); MEAN CORPUSCULAR HGB CONC 33.2 g/dL (32.0-36.0); MEAN CORPUSCULAR VOLUME 88.1 fL (81.0-99.0); MEAN PLATELET VOLUME 10.4 fL (7.9-10.8); MONOCYTES # (AUTO) 0.6 10^3/uL (0.0-1.0); MONOCYTES % (AUTO) 6.4 %; NEUTROPHILS # (AUTO) 5.6 10^3/uL (1.5-6.6); NEUTROPHILS % (AUTO) 61.8 %; PLT - PLATELET COUNT 248 10^3/uL (130-450); RED BLOOD COUNT 4.38 10^6/uL (4.20-5.40); RED CELL DISTRIBUTION WIDTH 12.6 % (12.0-15.0)
[2021-08-21 14:49] LABS: ALBUMIN 4.1 g/dL (3.2-5.5); ALBUMIN/GLOBULIN RATIO 1.2 (1.0-2.2); BILIRUBIN,TOTAL 0.7 mg/dL (0.2-1.0); CALCIUM 9.6 mg/dL (8.5-10.3); CREATININE 0.8 mg/dL (0.4-1.0); TOTAL PROTEIN 7.4 g/dL (6.7-8.2)
--- NOTE | 2021-08-21 17:01 | ED Physician Documentation ---
PD HPI ABD PAIN - Stated complaint Stated Complaint: LOWER ABD PX - Chief complaint Chief Complaint: Abd Pain - History obtained from History obtained from: Patient - History of Present Illness Timing - onset: How many days ago (3) Timing - duration: Days (3) Timing - details: Gradual onset Pain level max: 7 Pain level now: 5 Quality: Pain Location: LLQ Radiation: No: Chest, , Lower back, Left flank, Left shoulder, Right flank, Right shoulder, Upper back Associated symptoms: No: Fever, Nausea, Vomiting, Hematemesis, Constipation, Melena, Hematochezia, Dysuria, Hematuria, Chest pain, Dizzy Similar symptoms before: Diagnosis (Diverticulitis) - Additional information Additional information: Patient is a 65-year-old female recently treated for diverticulitis. She states that she finished the antibiotics and about 2 to 3 days ago the pain started coming back and now is worse than previous. She states the pain is worse with palpation, walking, better with rest and lying still. The pain is in the left lower quadrant. Did have mild diarrhea but this is now resolved. Her doctor ordered an outpatient CT, but she is allergic to contrast, causes a rash and so she checked into the ER so she could be pretreated with Benadryl. 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 - Present Medications Home Medications: Ambulatory Orders Medication Instructions Recorded Confirmed Atorvastatin [Lipitor] 20 mg PO DAILY 02/03/16 05/06/20 Levothyroxine Sodium [Levoxyl] 75 mcg PO DAILY 02/03/16 05/06/20 lisinopriL [Lisinopril] 10 mg PO DAILY 02/03/16 05/06/20 metFORMIN [Glucophage] 500 mg PO BID 02/03/16 05/06/20 Montelukast [Singulair] 10 mg PO QPM 09/16/18 05/06/20 Amox/Clav 875/125 [Augmentin] 1 tab PO Q8H #30 tablet 05/06/20 Amox/Clav 875/125 [Augmentin] 1 each PO Q12H #14 tablet 08/09/21 Amox/Clav 875/125 [Augmentin] 1 tab PO Q12H #20 tablet 08/21/21 HYDROcod/ACETAM 5/325 [[place] 5/325] 1 - 2 ea PO Q6H PRN #14 tablet 08/21/21 - Allergies Allergies/Adverse Reactions: Allergies Allergy/AdvReac Type Severity Reaction Status Date / Time clarithromycin Allergy Hives Verified 08/21/21 14:10 codeine Allergy Rash Verified 08/21/21 14:10 Iodinated Contrast Media Allergy Hives Verified 08/21/21 14:10 [Iodinated Contrast Media - IV Dye] morphine Allergy Edema Verified 08/21/21 14:10 - Social History Does the pt smoke?: No Smoking Status: Never smoker Does the pt drink ETOH?: No Does the pt have substance abuse?: No - Immunizations Immunizations are current?: Yes PD ED PE NORMAL - Vitals Vital signs reviewed: Yes - General General: Alert and oriented X 3, No acute distress, Well developed/nourished - HEENT HEENT: PERRL, Moist mucous membranes - Neck Neck: Supple, no meningeal sign - Cardiac Cardiac: RRR, Strong equal pulses - Respiratory Respiratory: No respiratory distress, Clear bilaterally - Abdomen Abdomen: Soft, Non distended, Other (Tender palpation left lower quadrant. No peritoneal signs.) - Derm Derm: Warm and dry - Extremities Extremities: No calf tenderness / cord - Neuro Neuro: Alert and oriented X 3 - Psych Psych: Normal mood, Normal affect Results - Vitals Vitals: Vital Signs - 24 hr 08/21/21 08/21/21 08/21/21 14:05 17:14 18:32 Temperature 36.6 C Heart Rate 77 65 68 Respiratory 14 18 18 Rate Blood Pressure 129/72 130/65 130/80 O2 Saturation 98 100 100 Oxygen O2 Source Room air - Labs Labs: Laboratory Tests 08/21/21 08/21/21 14:28 14:28 WBC 9.0 RBC 4.38 Hgb 12.8 Hct 38.6 MCV 88.1 MCH 29.2 MCHC 33.2 RDW 12.6 Plt Count 248 MPV 10.4 Neut # (Auto) 5.6 Lymph # (Auto) 2.8 [place] # (Auto) 0.6 Eos # (Auto) 0.1 Baso # (Auto) 0.0 Absolute Nucleated RBC 0.00 Nucleated RBC % 0.0 Sodium 135 Potassium 4.0 Chloride 102 Carbon Dioxide 24 Anion Gap 9.0 BUN 14 Creatinine 0.8 Estimated GFR (MDRD) 72 L Glucose 282 H Calcium 9.6 Total Bilirubin 0.7 AST 24 ALT 43 Alkaline Phosphatase 103 Total Protein 7.4 Albumin 4.1 Globulin 3.3 Albumin/Globulin Ratio 1.2 Lipase 49 - Rads (name of study) CT abdomen pelvis Radiology: Final report received, EMP read contemporaneously, See rad report PD MEDICAL DECISION MAKING - ED course Complexity details: reviewed results, re-evaluated patient, considered di fferential, d/w patient ED course: 65-year-old female with recurrent diverticulitis, but in a slightly different area than prior. No abscess or free air. This is her fourth episode in about 6 months. Recommend she follow-up with surgery to discuss colonoscopy versus colon removal. Patient is well-appearing, nontoxic. Afebrile. We will place on antibiotics and pain medication for home. I am prescribing a short course of short-acting opioid pain medication for this patient. I have reviewed the patients DOULA and no concerning findings were noted. I have discussed that the opioids are for short term therapy only, and will not be refilled from the ED. patient counseled regarding signs and symptoms for which I believe and urgent re-evaluation would be necessary. Patient with good understanding of and agreement to plan and is comfortable going home at this time This document was made in part using voice recognition software. While efforts are made to proofread this document, sound alike and grammatical errors may occur. CT abdomen pelvis IMPRESSION: 1. Sigmoid colon diverticulitis. The area of involvement is slightly superior than the recent CT 08/09/2021. No fluid collection to suggest abscess. No free air. 2. Extensive diverticulosis. 3. Small gallstone. Comment follow-up colonoscopy if not recently performed. Departure - Departure Disposition: 01 Home, Self Care Clinical Impression: Diverticulitis Condition: Good Instructions: ED Diverticulitis Follow-Up: your,doctor in 1 week [Other] Prescriptions: Amox/Clav 875/125 [Augmentin] 1 tab PO Q12H #20 tablet HYDROcod/ACETAM 5/325 [[place] 5/325] 1 - 2 ea PO Q6H PRN #14 tablet PRN Reason: Pain Comments: You do have recurrent diverticulitis. We will recommend that you follow-up with your doctor closely for further care. Return if you worsen. We will restart your antibiotics. The diverticulitis is in the slightly different area than before. Your prescriptions were sent to [facility] in [place]. If you have not had a recent colonoscopy, your doctor should considering ordering a colonoscopy once your symptoms have cleared. Discharge Date/Time: 08/21/21 18:35
[2021-08-21] MEDS ORDERED: IOVERSOL 320 100 ML VIAL IVP ONE (17:10)
[2021-08-21] MEDS: diphenhydrAMINE INJ 50 MG/ML VIAL IVP STA (17:14)
--- NOTE | 2021-08-21 18:15 | CT Report ---
PROCEDURE: Abdomen/Pelvis W INDICATIONS: LLQ abd pain CONTRAST: IV CONTRAST: Optiray 320 ml: 100 PO CONTRAST: *NO PO CONTRAST TECHNIQUE: After the administration of intravenous contrast, 5 mm thick sections acquired from the diaphragms to the symphysis. 5 mm thick coronal and sagittal reformats were acquired. For radiation dose reducti on, the following was used: automated exposure control, adjustment of mA and/or kV according to emerson ent size. COMPARISON: CT abdomen pelvis 08/09/2021. FINDINGS: Image quality: Excellent. ABDOMEN: Lung bases: Lung bases are clear. Heart size is normal. Solid organs: Liver and spleen are normal in size. Small calcified a gallstone. Biliary system is n on dilated. Pancreas enhances normally. No adrenal nodules. Kidneys demonstrate normal size and en hancement, without hydronephrosis. Tiny cysts. Peritoneum and bowel: Sigmoid colon diverticulitis in the midline pelvis. The area of involvement is slightly superior than previously seen on 08/09/2021. No extraluminal gas or fluid collection. No christiano s pneumoperitoneum. Extensive diverticulosis. No small bowel obstruction. Normal appendix. Nodes and vessels: No retroperitoneal or mesenteric adenopathy by size criteria. Aorta and inferior vena cava are normal in size. Miscellaneous: No ventral hernias. PELVIS: Genitourinary: Bladder wall thickness is normal. Vertically oriented last retroverted uterus. Miscellaneous: No inguinal hernias or adenopathy. Bones: No suspicious bony lesions. No vertebral body compression fractures. IMPRESSION: 1. Sigmoid colon diverticulitis. The area of involvement is slightly superior than the recent CT 08/09. No fluid collection to suggest abscess. No free air. 2. Extensive diverticulosis. 3. Small gallstone. Comment follow-up colonoscopy if not recently performed. Reviewed by: Florencio Salmeron MD on 08/21/2021 6:14 PM PDT Approved by: Florencio Salmeron MD on 08/21/2021 6:14 PM PDT Station ID: [id number]
[2021-08-21] MEDS: AMOX/CLAV 875 MG/125 MG TABLET PO STA (18:31)
[2021-08-21 18:35] VITALS: BP 130/80
[2021-08-21] MEDS: IOVERSOL 320 100 ML VIAL IVP ONE (18:39)
== END 2021-08-21 18:35 | disposition home or self-care (01) ==
LOC: ED 14:03
DX: K57.32 Diverticulitis of large intestine without perforation or abscess without bleeding (principal); I10 Essential (primary) hypertension; E11.9 Type 2 diabetes mellitus without complications; Z79.84 Long term (current) use of oral hypoglycemic drugs
CPT/HCPCS: 36415; 74177; 80053; 83690; 85025; 96374; 99284; A9270; J1200; Q9967

== ENCOUNTER 2021-12-16 14:58 | Outpatient (CLI) | payer OTHER ==
--- NOTE | 2021-12-16 17:28 | XRAY Report ---
PROCEDURE: Chest 2 View X-Ray INDICATIONS: ASPIRATION PNEUMONIA TECHNIQUE: 2 view(s) of the chest. COMPARISON: None. FINDINGS: Surgical changes and devices: None. Lungs and pleura: No pleural effusions or pneumothorax. Lungs are clear. Mediastinum: Mediastinal contours are normal. Heart size is normal. Bones and chest wall: No suspicious bony abnormalities. Soft tissues appear unremarkable. IMPRESSION: No acute cardiopulmonary findings. Reviewed by: Frances العلي MD on 12/16/2021 5:27 PM PDT Approved by: Frances لاعلي MD on 12/16/2021 5:27 PM PDT Station ID: [id number]
== END 2021-12-16 14:59 | disposition home or self-care (01) ==
LOC: DI.S 14:58
PROVIDERS: ATTEND Nurse Practitioner Family
DX: J69.0 Pneumonitis due to inhalation of food and vomit (principal)

== ENCOUNTER 2021-12-27 08:00 | Outpatient (CLI) | payer OTHER ==
[2021-12-27 17:57] LABS: BILIRUBIN,URINE NEGATIVE (NEGATIVE); GLUCOSE, URINE (UA) NEGATIVE (NEGATIVE); KETONES,URINE (UA) TRACE mg/dL (NEGATIVE); LEUKOCYTE ESTERASE, URINE TRACE (NEGATIVE); NITRITE,URINE NEGATIVE (NEGATIVE); OCCULT BLOOD,URINE TRACE-INTA (NEGATIVE); PH,URINE 7.5 PH (5.0-7.5); PROTEIN,URINE NEGATIVE (NEGATIVE); UROBILINOGEN,URINE 1 (NORMAL) E.U./dL (NORMAL)
[2021-12-27 18:17] LABS: BACTERIA,URINE Few /HPF (None Seen); CLARITY,URINE HAZY (CLEAR); CRYSTALS,URINE 11-25 Ca Oxalate /LPF; SQUAMOUS EPITHELIAL CELL,UR RARE Squamous (<= Few)
== END 2021-12-27 23:59 | disposition home or self-care (01) ==
LOC: LAB.N 08:00
PROVIDERS: ATTEND Physician Assistant Medical
DX: R30.0 Dysuria (principal)
CPT/HCPCS: 81001; 87086

== ENCOUNTER 2023-02-22 12:55 | Outpatient (CLI) | payer OTHER ==
--- NOTE | 2023-03-01 22:37 | SLEEP CARE CONSULTATION ---
Information from patient questionnaire entered by Rohith Ruffin. I have reviewed and concur with the information entered by Rohith Ruffin. This document represents the service I personally performed and the decisions made by me, Lelia Leger MD, [facility]. History of Present Illness Service Date and Time: 02/22/2023 1255 Reason for follow up: annual (LAST SEEN 12/2021) Equipment type: CPAP Prior sleep studies: Yes HPI additional information: Ms. Pringle returned today for follow up of nasal CPAP therapy. She was diagnosed to have severe obstructive sleep apnea-hypopnea syndrome. The patient went to [place] for the equipment and was fitted with a ResMed N30i mask. She reports using the [employer] 2 autoCPAP nightly and all through the night. The compliance report shows usage in 173 nights out of the past 180 nights, averaging 5.3 hours a night. The > 4 hour compliance rate for the past 30 days is 100%. 76.7She complained of no particular problem with the device such as soreness on the face, dry nose, epistaxis, nasal congestion or headache. She thinks that the pressure of 7 - 10 cmH2O is comfortable. On the CPAP therapy she notices improvement in her sleep quality, and that she wakes up feeling fresher in the morning and more awake/alert during the day. The Freeman Sleepiness Scale score 5. Her notices no snore at all. The average r esidual AHI is 1.9; and average time in large leak per day is 2 seconds. The 90th percentile pressure is 8.4 cmH2O. Sleep Study - Results Prior sleep studies: Yes CPAP Compliance Data - Data Reviewed with Patient Average duration of nightly device use: 5HRS 33MINS 59SECS Compliance rate %: 76.7 (-02/08/23) Current pressure setting (cmH2O): 7-10 Average residual AHI: 1.4 Subjective Initial Freeman Sleepiness Scale score: 7 (01/12/2022) Current Freeman Sleepiness Scale score: 5 (02/22/23) Allergies and Home Medications Drug allergies reviewed: Yes Home medication list reviewed: Yes Allergy and home medication list: Allergies clarithromycin Allergy (Verified 02/19/23 09:53) Hives codeine Allergy (Verified 02/19/23 09:53) Rash Iodinated Contrast Media [Iodinated Contrast Media - IV Dye] Allergy (Verified 02/19/23 09:53) Hives morphine Allergy (Verified 02/19/23 09:53) Edema Review of Systems Review of systems same as previous: Yes Physical Exam Vital signs obtained and entered by: ROHITH Pineda MA Blood Pressure: 118/72 (LEFT ARM) Cuff size: regular Heart Rate: 96 O2 Saturation: 75 Height: 5 ft 4 in Weight: 174 lb 3.2 oz Body Mass Index: 29.9 BMI Classification: Overweight Impression and Plan IMPRESSION: 1. Obstructive Sleep Apnea-Hypopnea Syndrome, severe, with the patient continuing to do well on nasal CPAP therapy. She has excellent compliance and significant clinical improvement. The current pressure appears effective and comfortable. Overall, she is very satisfied with treatment and plans to continue with it long-term. No adjustment is necessary today. PLAN: 1. Continue with autoCPAP set at 7 - 10 cmH2O. 2. Try to lose weight 3. Return in one year for follow up or earlier if there is any problem with the treatment. She will be eligible for a new machine next year. Follow up with Sleep Care in: 1 year Visit Type: In Office Time Spent with Patient (minutes): 15 Provider Statement: I spent 100% of the Face to Face Visit with the patient with greater than 50% spent counseling the patient and coordination of care.
[2023-03-01 22:41] VITALS: BP 118/72; O2SAT 75
== END 2023-02-22 12:56 | disposition home or self-care (01) ==
LOC: SC 12:55
PROVIDERS: ATTEND Internal Medicine Pulmonary Disease
DX: G47.33 Obstructive sleep apnea (adult) (pediatric) (principal); E66.3 Overweight; Z68.29 Body mass index [BMI] 29.0-29.9, adult
CPT/HCPCS: 99212

== ENCOUNTER 2023-04-19 14:18 | Outpatient (CLI) | payer OTHER ==
--- NOTE | 2023-04-19 17:51 | DEXA Report ---
PROCEDURE: Dexa Spine and/or Hip INDICATIONS: POST MENOPAUSAL TECHNIQUE: Dual energy x-ray absorptiometry (DXA) was performed on a [employer] System. Regions measur ed are the AP Spine, femoral neck, and if needed forearm. COMPARISON: None FINDINGS: Lumbar Spine: Bone Mineral Density 0.996 g/cm/cm,T score -1.5. Left Femoral Neck: Bone Mineral Density 0.767 g/cm/cm, T score -1.9. Left Hip: Bone Mineral Density 0.848 g/cm/cm,T score -1.3. (T score greater or equal to -1.0: NORMAL) (T score from -1.1 to -2.4: OSTEOPENIA) (T score less than or equal to -2.5 to: OSTEOPOROSIS) Impression: By WHO criteria, this patient has low bone density (osteopenia). Patients with diagnosis of osteoporosis or osteopenia should have regular bone mineral density assess ment. For those eligible for Medicare, routine testing is allowed once every 2 years. Testing frequ ency can be increased for patients who have rapidly progressing disease or for those who are receivin g medical therapy to restore bone mass. Reviewed by: Jey Renae MD on 04/19/2023 5:50 PM PST Approved by: Jey Renae MD on 04/19/2023 5:50 PM PST Station ID: [id number]
== END 2023-04-19 14:19 | disposition home or self-care (01) ==
LOC: DI 14:18
PROVIDERS: ATTEND Physician Assistant
DX: Z78.0 Asymptomatic menopausal state (principal); M85.80 Other specified disorders of bone density and structure, unspecified site

== ENCOUNTER 2023-04-19 15:23 | Outpatient (CLI) | payer OTHER ==
--- NOTE | 2023-04-20 10:36 | Mammography Report ---
BILATERAL DIGITAL SCREENING MAMMOGRAM 3D/2D: 04/19/2023 CLINICAL: Routine screening. Comparison is made to exams dated: 04/06/2019 mammogram, 03/17/2018 mammogram, and 02/12/2015 mammogra m - [facility]. There are scattered areas of fibroglandular density in both breasts (category b / 25%-50% glandular t issue). No significant masses, calcifications, or other findings are seen in either breast. There has been no significant interval change. IMPRESSION: NEGATIVE There is no mammographic evidence of malignancy. A 1 year screening mammogram is recommended. Based on the Tyrer Cuzick model (a risk assessment model) the patients lifetime risk is 5.8% and her 10 year risk is 2.9%. According to the ACR, ACS, and NCCN guidelines, an annual breast MRI exam cheryle g with mammogram is recommended if the patients lifetime risk is 20% or greater. This exam was interpreted at Station ID: [id number]. NOTE: For mammograms, a report in lay terms will be sent to the patient. Approximately 15% of breast malignancies will not be visualized mammographically. In the management of a palpable breast mass, a negative mammogram must not discourage biopsy of a clinically suspicious lesion. Electronically Signed By: Jakub [email or web address]/veronica:04/20/2023 08:01:33 letter sent: No_Letter ACR BI-RADS Category 1: Negative 3341F PARENCHYMAL PATTERN: (A) - The breast(s) demonstrate(s) scattered fibroglandular densities. BI-RADS CATEGORY: (1) - 1 Mammogram [id number] 1 year screening LATERALITY: (B)
== END 2023-04-19 15:24 | disposition home or self-care (01) ==
LOC: DI 15:23
PROVIDERS: ATTEND Physician Assistant
DX: Z12.31 Encounter for screening mammogram for malignant neoplasm of breast (principal); R92.323 Mammographic fibroglandular density, bilateral breasts